=== PATIENT | male | born 1995 | race Caucasian/White ===

== ENCOUNTER 2016-09-12 22:10 | Emergency (ER) | payer OTHER ==
[~2016-09-12] VITALS: Ht 180.3 cm; Wt 86.5 kg
[2016-09-12 22:35] LABS: HEMATOCRIT 53.7 % (38.0-50.0); MCH 27.4 PG (29.0-34.0); MCHC 32.8 G/DL (30.0-36.0); MCV 83.6 FL (86-99); MEAN PLAT.VOLUME 9.7 uM^3 (9.0-12.4); PLATELET COUNT 222 K/uL (156-360); RBC DIS.WIDTH-CV 13.1 % (11.8-14.6); RBC DIS.WIDTH-SD 39.9 % (39-53); RED BLOOD COUNT 6.42 M/uL (4.00-5.50); WHITE BLOOD COUNT 11.4 K/uL (4.1-10.2)
[2016-09-12 22:50] LABS: CHLORIDE 103 mEq/L (99-109); POTASSIUM 4.3 mEq/L (3.7-5.4); SODIUM 138 mEq/L (136-147)
[2016-09-12 22:52] LABS: GLUCOSE 119 mg/dL (70-99)
[2016-09-12 22:53] LABS: ANION GAP 10 MEQ/L (2-14)
[2016-09-12 22:55] LABS: ALKALINE PHOSPHATASE 103 IU/L (3-129)
[2016-09-12 22:56] LABS: GFR ESTIMATE (CALCULATED) > 59 mL/min/
[2016-09-12 22:57] LABS: DIRECT BILIRUBIN 0.3 mg/dL (0.0-0.3); UREA NITROGEN (BUN) 11 mg/dL (9-23)
[2016-09-12 22:59] LABS: LIPASE 30 U/L (1.0-51.0)
[2016-09-12] MEDS ORDERED: ZOFRAN4 MG PO (23:44)
[2016-09-13 00:18] VITALS: BP 143/66
== END 2016-09-13 00:20 | disposition home or self-care (01) ==
LOC: EME 22:10
PROVIDERS: Emergency Medicine
DX: R10.9 Unspecified abdominal pain (principal); R11.2 Nausea with vomiting, unspecified; E86.0 Dehydration
CPT/HCPCS: 80048; 80076; 83690; 85027; 99281; 99283